=== PATIENT | male | born 1940 | race Caucasian/White ===

== ENCOUNTER → 2017-06-15 | Outpatient (CLI) | payer MEDICARE ==
[~2017-06-15] MED LIST: AMOX1TAB12 PO; ASPI-515 PO; ATOR40TA78 PO; CHOL20002 PO; FURO20TA3 PO; IBRU140C PO; IBUP200C8 PO; INSU100V8 SQ; IRON1TAB60 PO; KRIL1CAP21 PO; LACT1CAP24 PO; LINA5TAB PO; METF500T4 PO; METO50TA82 PO; NIAC250T18 PO; OXYC5TAB3 PO; PANT40TA5 PO; POTA10TA11 PO; UBID10CA5 PO
== END | disposition home or self-care (01) ==
LOC: RAD 14:39
PROVIDERS: ATTEND Physician Assistant
DX: C79.51 Secondary malignant neoplasm of bone (principal); M48.061 Spinal stenosis, lumbar region without neurogenic claudication; M48.07 Spinal stenosis, lumbosacral region; M47.896 Other spondylosis, lumbar region; M47.897 Other spondylosis, lumbosacral region; M51.26 Other intervertebral disc displacement, lumbar region; M51.27 Other intervertebral disc displacement, lumbosacral region; C91.10 Chronic lymphocytic leukemia of B-cell type not having achieved remission
CPT/HCPCS: 72148

== ENCOUNTER 2017-07-14 11:07 | Inpatient (IN) | payer MEDICARE ==
[~2017-07-14] VITALS: Ht 165.1 cm; Wt 92.8 kg
[2017-07-14] MEDS ORDERED: SODIUM CHLORIDE 0.9% 1,000ML IVBOLUS ONE ×2 (11:30→16:00)
[2017-07-14] MEDS ORDERED: SODIUM CHLORIDE FLUSH 10ML SYR IVF ONE ×2 (11:30→13:30)
[2017-07-14] MEDS ORDERED: ONDANSETRON 2MG/ML, 2ML IVPush ONE (11:30)
[2017-07-14] MEDS ORDERED: DEXAMETHASONE 4 MG/ML, 1ML IVPush ONE (12:30)
[2017-07-14 12:39] LABS: ALBUMIN 2.6 g/dL (3.4-5.0); ANION GAP 24 mmol/L (5-15); CALCIUM 7.9 mg/dL (8.5-10.1); CHLORIDE 107 mmol/L (98-107); CREATININE 6.17 mg/dL (0.7-1.3)
[2017-07-14 12:55] LABS: MD YES; MEAN CORPUSCULAR HEMOGLOBIN 31.3 pg (27.5-34.5); MEAN CORPUSCULAR HGB CONC 31.2 g/dL (33.2-36.2); MEAN CORPUSCULAR VOLUME 100.2 fL (81-97); MEAN PLATELET VOLUME 8.3 fL (7.4-10.4); PLATELET COUNT 65 x10^3/uL (130-400); RED BLOOD COUNT 3.19 x10^6/uL (4.38-5.82); RED CELL DISTRIBUTION WIDTH 20.7 % (9.4-14.8)
[2017-07-14 13:01] LABS: LYMPH#(MANUAL) 124.17 x10^3/uL (1-3.4); LYMPHS% (MANUAL) 94 % (22-44); SEG#(MANUAL) 7.93 x10^3/uL (1.8-6.8); SEGS% (MANUAL) 6 % (42-75)
[2017-07-14 13:02] LABS: <PLATELET ESTIMATE> DECREASED; <PLT MORPHOLOGY> NORMAL PLT MORPH; ANISOCYTOSIS 1+; ECHINOCYTES 1+; OVALOCYTES 1+
[2017-07-14] MEDS ORDERED: SODIUM CHLORIDE 0.9% 1,000 ML IV ONE (13:04)
[2017-07-14] MEDS ORDERED: CEFTRIAXONE PMX 1GM/50ML 50 ML IV ONE (13:30)
[2017-07-14] MEDS ORDERED: SODIUM BICARB 8.4%, 50ML SYRINGE IVPush ONE (13:30)
[2017-07-14] MEDS ORDERED: INSULIN REGULAR 100 UNITS/ML, 3ML VIAL IVPush ONE (13:30)
[2017-07-14] MEDS ORDERED: CALCIUM CHLORIDE 10%, 10ML SYR IVPush ONE (13:30)
[2017-07-14] MEDS ORDERED: DEXTROSE 50%, 50ML SYRINGE IVPush ONE (13:30)
[2017-07-14] MEDS ORDERED: GADOBUTROL 7.5 MMOL/7.5 ML PFS ONE (13:38)
[2017-07-14] MEDS ORDERED: CALCIUM CHLORIDE 10%, 10ML SYR ONE (14:00)
[2017-07-14] MEDS ORDERED: DEXTROSE 50%, 50ML SYRINGE ONE (14:00)
[2017-07-14] MEDS ORDERED: SODIUM BICARB 8.4%, 50ML SYRINGE ONE (14:00)
[2017-07-14] MEDS ORDERED: CEFTRIAXONE PMX 1GM/50ML 50 ML ONE ×2 (14:00→14:01)
[2017-07-14] MEDS ORDERED: ONDANSETRON 2MG/ML, 2ML ONE (14:01)
[2017-07-14] MEDS ORDERED: DEXAMETHASONE 4 MG/ML, 5ML ONE (14:01)
[2017-07-14] MEDS ORDERED: INSULIN REGULAR 100 UNITS/ML, 3ML VIAL ONE (14:03)
[2017-07-14] MEDS ORDERED: FENTANYL PF 100 MCG/2ML ONE (14:07)
[2017-07-14] MEDS ORDERED: CALCIUM CHLORIDE 13.6 MEQ in SODIUM CHLORIDE 0.9% 100 ML IV ONE ×2 (14:30→22:30)
[2017-07-14] MEDS ORDERED: FENTANYL PF 100 MCG/2ML IVPush ONE (14:30)
[2017-07-14] MEDS ORDERED: ROCURONIUM 10 MG/ML,10ML ONE (14:48)
[2017-07-14] MEDS ORDERED: ETOMIDATE 20 MG/10 ML IVPush ONE (15:00)
[2017-07-14] MEDS ORDERED: ROCURONIUM 10 MG/ML,10ML IVPush ONE (15:00)
[2017-07-14] MEDS ORDERED: FURO20TA3 PO (15:05)
[2017-07-14] MEDS ORDERED: INSU200I4 SQ-INSULIN ×2 (15:05)
[2017-07-14] MEDS ORDERED: METF500T4 PO (15:05)
[2017-07-14] MEDS ORDERED: LINA5TAB PO (15:05)
[2017-07-14] MEDS ORDERED: NIAC500T PO (15:05)
[2017-07-14] MEDS ORDERED: IBRU140C PO (15:05)
[2017-07-14] MEDS ORDERED: PROPOFOL 100 ML IV SCH (15:30)
[2017-07-14] MEDS ORDERED: PROPOFOL 100 ML IV PRN (15:56)
[2017-07-14] MEDS ORDERED: LIDOCAINE-MPF 1%, 2ML ENDO PRN (16:00)
[2017-07-14] MEDS ORDERED: HEPARIN 5,000 UNITS/ML, 1ML SQ SCH (16:00)
[2017-07-14] MEDS ORDERED: SODIUM BICARBONATE 8.4% 150 MEQ in DEXTROSE 5% 1,000 ML IV SCH (16:30)
[2017-07-14 16:32] LABS: MICROSCOPIC INDICATED
[2017-07-14 16:40] LABS: CULTURE INDICATED? NO
[2017-07-14] MEDS ORDERED: SODIUM BICARB 8.4%,50ML SYR. 150 MEQ in D5%-0.45% NACL 1,000 ML IV SCH (17:00)
[2017-07-14] MEDS ORDERED: MAGNESIUM SULFATE PMX 2GM/50ML 50 ML IV ONE (17:00)
[2017-07-14] MEDS ORDERED: morphine SULFATE 10 MG/ML, 1ML IVPush PRN (17:00)
[2017-07-14] MEDS ORDERED: OXYcodone IR 5MG TABLET PO PRN (17:00)
[2017-07-14] MEDS ORDERED: ONDANSETRON 2MG/ML, 2ML IVPush PRN (17:00)
[2017-07-14] MEDS ORDERED: LORazepam 2 MG/ML, 1ML IVPush PRN (17:00)
[2017-07-14] MEDS ORDERED: NOREPINEPHRINE 4 MG in SODIUM CHLORIDE 0.9% 246 ML IV PRN (17:00)
[2017-07-14] MEDS ORDERED: VANCOMYCIN PER PHARMACY MC PRN (17:00)
[2017-07-14] MEDS ORDERED: POLYETHYLENE GLYCOL 17 GM PACKET PO PRN (17:00)
[2017-07-14 17:39] LABS: TROPONIN I 0.455 ng/mL (0.000-0.045)
[2017-07-14] MEDS ORDERED: PHARMACOKINETIC MONITORING MC PRN (18:00)
[2017-07-14] MEDS ORDERED: PHENYLEPHRINE 10 MG in SODIUM CHLORIDE 0.9% 249 ML IV PRN (18:30)
[2017-07-14] MEDS ORDERED: VASOPRESSIN 100 UNIT in SODIUM CHLORIDE 0.9% 495 ML IV PRN (18:30)
[2017-07-14] MEDS: PIPERACILLIN/TAZO 2.25 GM in SODIUM CHLORIDE 0.9% 50 ML IV SCH (18:56)
[2017-07-14] MEDS ORDERED: VANCOMYCIN 1,300 MG in SODIUM CHLORIDE 0.9% 250 ML IV ONE (19:00)
[2017-07-14] MEDS: SODIUM BICARBONATE 8.4% 150 MEQ in DEXTROSE 5% 1,000 ML IV SCH (20:57)
[2017-07-14] MEDS ORDERED: FAMOTIDINE 20 MG/2 ML IVPush SCH (21:00)
[2017-07-14] MEDS: NOREPINEPHRINE 8 MG in SODIUM CHLORIDE 0.9% 242 ML IV PRN (21:18)
[2017-07-14] MEDS: INSULIN ASPART 100 UNITS/ML, PEN SQ-INSULIN SCH (21:31)
[2017-07-14] MEDS: HEPARIN 5,000 UNITS/ML, 1ML SQ SCH (21:32)
[2017-07-14] MEDS ORDERED: AMIODARONE 150 MG in DEXTROSE 5% 100 ML IV ONE (22:30)
[2017-07-14] MEDS ORDERED: AMIODARONE 900 MG in DEXTROSE 5% 482 ML IV PRN (22:30)
[2017-07-14] MEDS ORDERED: FILTER 0.22 MICRON IV PRN (22:30)
[2017-07-15] MEDS: PIPERACILLIN/TAZO 2.25 GM in SODIUM CHLORIDE 0.9% 50 ML IV SCH ×2 (01:17→07:29)
[2017-07-15] MEDS: SODIUM BICARBONATE 8.4% 150 MEQ in DEXTROSE 5% 1,000 ML IV SCH (01:17)
[2017-07-15] MEDS: NOREPINEPHRINE 8 MG in SODIUM CHLORIDE 0.9% 242 ML IV PRN (03:58)
[2017-07-15 05:01] LABS: ALANINE AMINOTRANSFERASE 79 U/L (12-78); ALBUMIN 1.7 g/dL (3.4-5.0); ANION GAP 27 mmol/L (5-15); CALCIUM 7.3 mg/dL (8.5-10.1); CHLORIDE 101 mmol/L (98-107)
[2017-07-15 05:02] VITALS: BP 92/50
[2017-07-15 05:03] LABS: ALKALINE PHOSPHATASE 396 U/L (45-117); BILIRUBIN,TOTAL 0.5 mg/dL (0.2-1.0); TOTAL PROTEIN 3.7 g/dL (6.4-8.2)
[2017-07-15 05:36] LABS: MEAN CORPUSCULAR HEMOGLOBIN 31.2 pg (27.5-34.5); MEAN CORPUSCULAR HGB CONC 31.1 g/dL (33.2-36.2); MEAN CORPUSCULAR VOLUME 100.2 fL (81-97); RED BLOOD COUNT 2.18 x10^6/uL (4.38-5.82); RED CELL DISTRIBUTION WIDTH 20.4 % (9.4-14.8)
[2017-07-15] MEDS: HEPARIN 5,000 UNITS/ML, 1ML SQ SCH (05:47)
[2017-07-15 06:04] LABS: PLATELET COUNT 38 x10^3/uL (130-400)
[2017-07-15 06:23] LABS: MD YES
[2017-07-15 06:25] LABS: BANDS%(MANUAL) 1 % (0-7); LYMPH#(MANUAL) 75.01 x10^3/uL (1-3.4); LYMPHS% (MANUAL) 94 % (22-44); SEG#(MANUAL) 3.99 x10^3/uL (1.8-6.8); SEGS% (MANUAL) 5 % (42-75)
[2017-07-15 06:26] LABS: ANISOCYTOSIS 1+; MEAN PLATELET VOLUME 8.3 fL (7.4-10.4); SMUDGE CELLS 2+
[2017-07-15 06:27] LABS: ACANTHOCYTES 1+; ECHINOCYTES 1+
[2017-07-15 06:28] LABS: <PLATELET ESTIMATE> DECREASED; <PLT MORPHOLOGY> NORMAL PLT MORPH; OVALOCYTES 1+
[2017-07-15] MEDS: INSULIN ASPART 100 UNITS/ML, PEN SQ-INSULIN SCH (07:00)
[2017-07-15 07:07] VITALS: BP 89/24
[2017-07-15 07:23] VITALS: BP 71/51
[2017-07-15] MEDS ORDERED: LORazepam 2 MG/ML, 1ML IV PRN (09:00)
[2017-07-15] MEDS ORDERED: LORazepam 2 MG/ML, 1ML IV ONE (09:00)
[2017-07-15] MEDS ORDERED: morphine SULFATE 10 MG/ML, 1ML IV ONE (09:00)
[2017-07-15] MEDS ORDERED: SENNA/DOCUSATE TABLET PO SCH (09:00)
[2017-07-15] MEDS ORDERED: NOREPINEPHRINE 8 MG in SODIUM CHLORIDE 0.9% 242 ML IV PRN (09:00)
[2017-07-15] MEDS ORDERED: SODIUM BICARBONATE 8.4% 150 MEQ in DEXTROSE 5% 1,000 ML IV SCH (09:00)
[2017-07-15] MEDS ORDERED: ATROPINE OPHTH SOLN 1%, 2ML PO PRN (09:00)
[2017-07-15 09:02] VITALS: BP 96/57
[2017-07-15] MEDS ORDERED: NOREPINEPHRINE 4 MG in SODIUM CHLORIDE 0.9% 246 ML IV PRN (17:00)
== END 2017-07-15 12:37 | disposition expired | DRG 208 ==
LOC: ED 12:06 → EDIP 13:35 → CCU 17:48
PROVIDERS: ADMIT Internal Medicine; ATTEND Internal Medicine
PROC: 02HV33Z Insertion of Infusion Device into Superior Vena Cava, Percutaneous Approach (ICD-10-PCS; 2017-07-14)
PROC: 5A1D70Z Performance of Urinary Filtration, Intermittent, Less than 6 Hours Per Day (ICD-10-PCS; 2017-07-14)
PROC: 0T9B70Z Drainage of Bladder with Drainage Device, Via Natural or Artificial Opening (ICD-10-PCS; 2017-07-14)
PROC: 5A1935Z Respiratory Ventilation, Less than 24 Consecutive Hours (ICD-10-PCS; principal; 2017-07-15)
PROC: 0BH17EZ Insertion of Endotracheal Airway into Trachea, Via Natural or Artificial Opening (ICD-10-PCS; 2017-07-15)
PROC: 30233N1 Transfusion of Nonautologous Red Blood Cells into Peripheral Vein, Percutaneous Approach (ICD-10-PCS; 2017-07-15)
DX: J96.00 Acute respiratory failure, unspecified whether with hypoxia or hypercapnia (principal); E88.3 Tumor lysis syndrome; E87.2 Acidosis; I95.9 Hypotension, unspecified; C91.10 Chronic lymphocytic leukemia of B-cell type not having achieved remission; C79.51 Secondary malignant neoplasm of bone; D68.59 Other primary thrombophilia; D69.6 Thrombocytopenia, unspecified; N17.9 Acute kidney failure, unspecified; G83.4 Cauda equina syndrome; I48.92 Unspecified atrial flutter; L03.211 Cellulitis of face; M48.54XA Collapsed vertebra, not elsewhere classified, thoracic region, initial encounter for fracture; I48.91 Unspecified atrial fibrillation; Z51.5 Encounter for palliative care; D64.9 Anemia, unspecified; E11.9 Type 2 diabetes mellitus without complications; E78.5 Hyperlipidemia, unspecified; E83.39 Other disorders of phosphorus metabolism; E87.5 Hyperkalemia; I10 Essential (primary) hypertension; K21.9 Gastro-esophageal reflux disease without esophagitis; M48.061 Spinal stenosis, lumbar region without neurogenic claudication; Z66 Do not resuscitate; Z79.4 Long term (current) use of insulin; Z85.46 Personal history of malignant neoplasm of prostate; Z90.79 Acquired absence of other genital organ(s); Z92.3 Personal history of irradiation; Z95.2 Presence of prosthetic heart valve
CPT/HCPCS: 31500; 36415; 36556; 36600; 51702; 71045; 72158; 74340; 76770; 76937; 77001; 80048; 80053; 81001; 82040; 82436; 82533; 82570; 82607; 82803; 82962; 83605; 83690; 83735; 84100; 84133; 84300; 84443; 84478; 84484; 84550; 85025; 86704; 86706; 86850; 86900; 86923; 87040; 87070; 87077; 87081; 87205; 87340; 93005; 94002; 94003; 96361; 96365; 96375; 96376; A9585; J0696; J1100; J1644; J1815; J2405; J2543; J2704; J3010; J3370; J7070; C1751; J0282; J1642; J2060; J2270; J2370; J3475; J7030; J7040; J7050; J7060; P9016; S0028